=== PATIENT | female | born 1965 | race Caucasian/White ===

== ENCOUNTER → 2019-09-11 14:52 | Outpatient (CLI) | payer OTHER, SELFPAY ==
--- NOTE | ~2019-09-11 | MM_ITS ---
EXAMINATION: MM screening sebastien BI w wang HISTORY: Screening mammogram TECHNIQUE: Craniocaudal and mediolateral oblique 3-D tomosynthesis images were obtained and synthetic 2-D images were generated. CAD analysis was submitted and interpreted. COMPARISON: No prior mammogram is available for comparison at this institution. BREAST PARENCHYMAL COMPOSITION: The breasts are almost entirely fatty. FINDINGS: RIGHT BREAST: There is no evidence of suspicious mass, calcification, or architectural distortion to suggest malignancy. LEFT BREAST: There is focal asymmetry in the middle third of the upper outer quadrant of the breast. IMPRESSION: 1. Focal asymmetry of the left breast. 2. Additional mammographic views and possible breast ultrasound are recommended. BI-RADS Category 0: Incomplete: Needs additional imaging evaluation. Reviewed, dictated and finalized at location A. IMPRESSION: 1. Focal asymmetry of the left breast. 2. Additional mammographic views and possible breast ultrasound are recommended . BI-RADS Category 0: Incomplete: Needs additional imaging evaluation.
== END ==
PROVIDERS: PCP Family Medicine; Visit Provider Family Medicine
DX: Z12.31 Encounter for screening mammogram for malignant neoplasm of breast (principal); R92.8 Other abnormal and inconclusive findings on diagnostic imaging of breast
CPT/HCPCS: 77063; 77067

== ENCOUNTER → 2019-09-25 08:50 | Outpatient (CLI) | payer OTHER, SELFPAY ==
--- NOTE | ~2019-09-25 | MMUS_ITS ---
EXAMINATION: MM diagnostic mammo unilat LT, US breast LT limited HISTORY: Low up left breast asymmetry TECHNIQUE: Additional 3-D tomosynthesis images of the left breast were performed and synthetic 2-D im ages were generated. CAD analysis was submitted and interpreted. High resolution left breast ultrasou nd was performed. COMPARISON: 09/11/2019 FINDINGS: MAMMOGRAPHIC FINDINGS: Breast composed of scattered areas of fibroglandular density. There are no suspicious masses, calcifi cations or architectural distortion in the left breast to suggest malignancy. ULTRASOUND: Left breast ultrasound: At 1:00, 4 cm from the nipple, there is an oval circumscribed hyperechoic mass located superficially measuring 1.3 x 0.5 x 0.6 cm. No significant internal vascularity. Findings compatible with benign li marly. At 2:00, 8 cm from the nipple, there is a 5 mm cyst. IMPRESSION: 1. No evidence for malignancy in the left breast. Benign findings. 2. Routine yearly screening mammogram and regular clinical breast examination are recommended. BI-RADS Category 2: Benign finding(s). Reviewed, dictated and finalized at location A. IMPRESSION: 1. No evidence for malignancy in the left breast. Benign findings. 2. Routine yearly screening mammogram and regular clinical breast examination a re recommended. BI-RADS Category 2: Benign finding(s).
== END ==
PROVIDERS: PCP Family Medicine; Visit Provider Nurse Practitioner Family
DX: R92.8 Other abnormal and inconclusive findings on diagnostic imaging of breast (principal)
CPT/HCPCS: 76642; 77065

== ENCOUNTER 2020-03-03 14:57 | Outpatient (CLI) | payer OTHER, SELFPAY ==
--- NOTE | ~2020-03-03 | DEXA_ITS ---
Bone Density Report Name: Lexi Fernandez Age: 54 Sex: Female Ethnicity: White Date of : 1965 Indication: postmenopausal; height loss; prior fracture; asthma or emphysema; Referring Provider: JADEN CAMARGO Study: Bone densitometry was performed. Exam Date: March 03, 2020 Accession number: [id number] Bone Density: Region BMD T-score Z-score Classification AP Spine (L1-L4) 1.077 0.3 1.4 Normal Femoral Neck (Left) 0.775 -0.7 0.4 Normal Total Hip (Left) 0.981 0.3 1.1 Normal Total Hip Bilateral Avg 0.992 0.4 1.2 Normal Femoral Neck (Right) 0.820 -0.3 0.9 Normal Total Hip (Right) 1.001 0.5 1.2 Normal World Health Organization criteria for BMD impression classify patients as: Normal (T-score at or above -1.0), Osteopenia (T-score between -1.0 and -2.5), or Osteoporosis (T-score at or below -2.5). 10-year Fracture Risk: FRAX not reported because: All T-scores for Spine Total, Hip Total, Femoral Neck at or above -1.0 Clinical Information Provided by Patient: Has had a low trauma fracture Has the following medical conditions: Asthma or Emphysema Patient maximum height was 63 Menopause Age: 53 No regular weight bearing exercise Drinks caffeinated beverages Onset of menses at age 10 Number of children 2 Impression: The patient has normal bone mass. The patient has risk factors, including: previous fracture. Discussion: BONE DENSITY IS ABOVE THE MINIMUM DESIRABLE LEVEL AT ALL SKELETAL SITES TESTED. This patient?s bone mineral density is above the minimum desirable level (T-score -1.0 or better) at all sites measured. The patient should follow a healthful lifestyle (good nutrition with adequate calcium and vitamin D, and appropriate weight-bearing exercise). Follow-Up: Consider repeating this study in 5 years or sooner if there is some new clinical indication. Reported by: RICHARDSON on 03/03/2020 3:22:00 PM. Reviewed, dictated and finalized at location ACristal GUEVARA
== END 2020-03-03 14:58 | disposition home or self-care (01) ==
PROVIDERS: PCP Family Medicine; Visit Provider Obstetrics & Gynecology
DX: Z78.0 Asymptomatic menopausal state (principal)
CPT/HCPCS: 77080

== ENCOUNTER → 2020-11-13 06:35 | Outpatient (CLI) | payer OTHER, SELFPAY ==
[2020-11-13 23:32] LABS: SARS-CoV-2 RNA PCR Negative
== END ==
PROVIDERS: PCP Family Medicine; Visit Provider Family Medicine
DX: Z01.812 Encounter for preprocedural laboratory examination (principal); Z20.822 Contact with and (suspected) exposure to COVID-19
CPT/HCPCS: C9803; U0003; U0005

== ENCOUNTER → 2021-07-15 15:55 | Outpatient (CLI) | payer OTHER, SELFPAY ==
--- NOTE | ~2021-07-15 | MM_ITS ---
EXAMINATION: MM screening sebastien BI w wang HISTORY: Screening TECHNIQUE: Craniocaudal and mediolateral oblique 3-D tomosynthesis images were obtained and synthetic 2-D images were generated. CAD analysis was submitted and interpreted. COMPARISON: 09/11/2019 BREAST PARENCHYMAL COMPOSITION: Breast composed of scattered areas of fibroglandular density FINDINGS: There is no evidence of suspicious mass, calcification, or architectural distortion to sugg est malignancy in either breast. There has been no suspicious interval change. IMPRESSION: 1. No mammographic evidence of malignancy. 2. Recommend routine screening mammography in one year. BI-RADS Category 1: Negative Reviewed, dictated and finalized at location B. N HOSPITALIST PHYSICIAN
== END ==
PROVIDERS: Visit Provider Obstetrics & Gynecology
DX: Z12.31 Encounter for screening mammogram for malignant neoplasm of breast (principal)
CPT/HCPCS: 77063; 77067

== ENCOUNTER 2021-08-19 12:13 | Outpatient (CLI) | payer OTHER, SELFPAY ==
--- NOTE | ~2021-08-19 | US_ITS ---
EXAMINATION: US pelvic complete w TV DATE: 08/19/2021 12:52 INDICATION: Postmenopausal bleeding TECHNIQUE: Multiple transabdominal and endovaginal sonographic images of the pelvis were obtained. COMPARISON: None. FINDINGS: The uterus measures 8.5 x 4.6 x 3.6 cm. The endometrial complex measures 2.1 cm. The ovarie s are not visualized however no adnexal abnormality is seen. There is no free fluid in the pelvis. IMPRESSION: 1. Endometrial thickening which may be due to hyperplasia, polyp, or malignancy. Endometrial sampling is recommended. Reviewed, dictated and finalized at location A. CTOR OF ROOMS IMPRESSION: 1. Endometrial thickening which may be due to hyperplasia, polyp, or malignancy . Endometrial sampling is recommended.
== END 2021-08-19 12:14 | disposition home or self-care (01) ==
LOC: ANHIMG 12:18
PROVIDERS: PCP Family Medicine; Visit Provider Obstetrics & Gynecology
DX: N95.0 Postmenopausal bleeding (principal); R93.89 Abnormal findings on diagnostic imaging of other specified body structures
CPT/HCPCS: 76830; 76856

== ENCOUNTER → 2021-09-10 00:21 | Outpatient (CLI) | payer OTHER, SELFPAY ==
[2021-09-10 12:17] LABS: SARS-CoV-2 RNA PCR Negative
== END ==
PROVIDERS: PCP Family Medicine; Visit Provider Obstetrics & Gynecology
DX: Z01.812 Encounter for preprocedural laboratory examination (principal); Z20.822 Contact with and (suspected) exposure to COVID-19
CPT/HCPCS: C9803; U0003; U0005

== ENCOUNTER 2021-09-14 00:24 | Day surgery (SDC) | payer OTHER, SELFPAY ==
[2021-09-06 14:40] VITALS: BMI 36.3
--- NOTE | 2021-09-06 14:50 | PC.NURSE ---
Report to the Outpatient Waiting Room, entrance under the green pavilion located off [facility], at time 0830 on date 09/14/21. OR Time: 1030. - You and your visitor will be asked a series of questions to screen for COVID 19 for your protection. - A mask is required within the hospital. One visitor will be allowed to accompany the patient into the hospital. Patients visitor will be instructed to remain with patient at all times or leave the building. We will allow the visitor to come back to the postoperative area when patient is ready. Preoperative COVID Testing Requirements: No COVID Test needed if: (proof is required; if not received patient will have Rapid Test prior to entry) - Patient has received COVID Vaccine at least 14 days prior to procedure date or - Patient has positive COVID test result within last 90 days of surgery date. COVID Test needed if above criteria is not met Patients may have clear liquids (water, carbonated beverages, clear teas, apple juice) until 3 hours prior to surgery with a maximum of 20 ounces. - No food from midnight until time of surgery Take the following medications with a SIP of water the morning of surgery: LEVOTHYROXINE Medications to discontinue per physician: N/A Date to take last dose: N/A Please no make-up, nail belizean, hairspray, perfume, deodorant, or body powder the day of surgery. No jewelry (including any body piercings) or valuables the day of surgery, leave them at home. Please take a shower or bath the night before, or the morning of, surgery with an antibacterial soap. Wear comfortable, loose fitting clothing. - Jewelry must be removed prior to entering the operating room. Rings and piercings that are not removed may be cut off. - The hospital will not accept responsibility for valuables. - Please leave all valuables, including medications, at home the day of surgery. If you are going home after surgery, a licensed mail truck driver must drive you home. - NO public transportation without another adult. - We recommend that an adult stay with you for 24 hours following discharge. - We also recommend that you do not drive, make important decision, drink alcoholic beverages, or take any drugs that were not prescribed by your health care provider for at least 24 hours after your discharge time. Follow any additional instructions given to you from your surgeon. Telephone instructions given to JODI HORN and asked if any additional questions and then verbalized understanding. Patient advised to call surgeon office or pre surgery nurse liaison [phone] if any additional questions.
--- NOTE | 2021-09-13 13:25 | P.PNAN_ITS ---
Anes - Initial Pre Proc Eval Procedure: Operation Date: 09/14/21 08:30 Proposed Procedures p Hysteroscopy Dilation and Curettage with Possible Myosure - Sigifredo Lopez MD Date/Time: 09/13/21 13:25 Surgeon: Sigifredo Lopez MD Pre Op Diagnosis: post menopausal bleeding Patient Data Age: 55 Gender: F Height: 1.6 m Weight: 93 kg Allergies Allergy/AdvReac Type Severity Reaction Status Date / Time chlorhexidine Allergy Mild Hives Verified 09/14/21 06:56 [From Hibiclens] codeine Allergy Mild Vomiting Verified 09/06/21 14:40 Home Medications Medication Instructions Recorded Confirmed Type levothyroxine 125 mcg tablet See Rx Instructions .ROUTE 08/01/21 09/14/21 Rx .COMPLEX #90 tablet Patient hx anesthesia problems: none Family hx anesthesia problems: none Results Review: All pre-operative results and documents have been reviewed as part of the pre-operative evaluation. [facility] Past Medical History Medical History (Updated 09/13/21 @ 13:26 by Yoni Duron DO) Asthma BMI 37.0-37.9, adult BMI 38.0-38.9,adult H/O vaginal delivery Hypothyroidism Obesity Onychomycosis Surgical History Surgical History H/O section S/P knee surgery Family History Family History Father Hypertension Grandparent Cerebrovascular accident Other Diabetes mellitus Social History Social History Smoking packs per day: 1 Smoking cigarettes per day: 20.0 Years smoked: 10 Smoking pack-years: 10.00 Smoking status: Former smoker Tobacco type: cigarettes Smoking end date: 07/02/09 Alcohol intake: current Alcohol use details: 2/MONTH Substance use: never Substance use type: does not use Living arrangements: with family Spiritual care concerns: No Anes - Eval Final PreProcedure Day of Procedure 09/13/21 13:25 Patient weight: obese Heart: regular rate and rhythm Lungs: clear to auscultation and normal air movement Airway: Mallampati scale class II Neurological: alert and oriented Last oral intake: >/= 8 hours ASA classification: II Emergent: no Anesthetic plan: proceed Anesthesia type and monitoring: general GIVS and standard monitoring Results Review: All pre-operative results and documents have been reviewed as part of the pre-operative evaluation. Informed Consent: The patient's anesthetic plan and its attendant risks and benefits were discussed with the patient/family/POA. Questions were solicited and answers provided to the satisfaction of the patient/family/POA.
[2021-09-14] MEDS: ACETAMINOPHEN 500 MG TABLET 1000 MG PO (07:17)
[2021-09-14] MEDS: LACTATED RINGERS 1,000 ML 30 ML IV CONT (07:30)
[2021-09-14 07:46] VITALS: BP 142/95; PULSE 84; RESP 16; TEMP 36.1; O2SAT 100
--- NOTE | 2021-09-14 08:13 | PM.IMHP ---
H&P: HPI History of Present Illness Date/Time: 09/14/21 08:13 Patient with history of postmenopausal bleeding. Subsequent ultrasound showed a thickened endometrial stripe and endometrial biopsy did not show hyperplasia or carcinoma there were some findings of papillary metaplasia which I have seen sometimes if there is an endometrial polyp which is what I suspect is the etiology of her bleeding with the thickness of the lining on ultrasound. She was recommended for hysteroscopy, dilation and currettage and removal of lesion if present. Chief Complaint: postmenopausal bleeding Review of Systems Review of Systems: All systems reviewed & are unremarkable except as noted in HPI and below Cardiovascular: Cardiovascular: Reports no additional cardiovascular complaints, Denies chest pain and Denies dyspnea Respiratory: Respiratory: Reports no additional respiratory complaints and Denies dyspnea Gastrointestinal: Gastrointestinal: Reports abdominal pain, Denies change in bowel habits, Denies diarrhea, Denies nausea and Denies vomiting Genitourinary: Genitourinary: Reports pelvic pain Musculoskeletal: Musculoskeletal: Reports back pain Integumentary/Breasts: Skin/Breast: Reports system reviewed and no additional complaints, except as docu Neurologic: Reports system reviewed and no additional complaints, except as documented [facility] Past Medical History Medical History Asthma BMI 37.0-37.9, adult BMI 38.0-38.9,adult H/O vaginal delivery Hypothyroidism Obesity Onychomycosis Surgical History Surgical History H/O section S/P knee surgery Family History Family History Father Hypertension Grandparent Cerebrovascular accident Other Diabetes mellitus Social History Social History Smoking packs per day: 1 Smoking cigarettes per day: 20.0 Years smoked: 10 Smoking pack-years: 10.00 Smoking status: Former smoker Tobacco type: cigarettes Smoking end date: 07/02/09 Alcohol intake: current Alcohol use details: 2/MONTH Substance use: never Substance use type: does not use Living arrangements: with family Spiritual care concerns: No Meds Home Medications and Allergies Home Medications Medication Instructions Recorded Confirmed Type levothyroxine 125 mcg tablet See Rx Instructions .ROUTE 08/01/21 09/14/21 Rx .COMPLEX #90 tablet Allergies Allergy/AdvReac Type Severity Reaction Status Date / Time chlorhexidine Allergy Mild Hives Verified 09/14/21 06:56 [From Hibiclens] codeine Allergy Mild Vomiting Verified 09/06/21 14:40 Vital Signs Vital Signs - 24 hr 09/14/21 07:46 Temperature 97.0 F L Pulse Rate 84 Respiratory Rate 16 Blood Pressure 142/95 H Pulse Oximetry 100 Exam Const: Orientation/consciousness: oriented to person and oriented to place HENMT: Head: normal to inspection Eyes: General: appearance normal, both eyes and all related structures Resp: Effort & Inspection: normal respiratory effort Auscultation: clear to auscultation bilaterally Cardio: Rate: regular rate Rhythm: regular rhythm GI: Inspection: normal to inspection GI Palp: No Rebound tenderness present : External Female Exam: normal external appearance Speculum Exam - Cervix: normal appearance of the cervix Bimanual exam- vagina & uterus: normal bimanual exam and uterine shape normal Bimanual Exam- Adnexa, other: no masses Neuro: General: oriented to person and oriented to place Cognition (Neuro): normal cognition Extrem: General: normal to inspection Psych: Appearance: grossly normal and well kempt Assessment and Plan Assessment and plan (1) Post-menopausal bleeding: Code(s): N95.0 - Postmenopausal bleeding Status: Acute
--- NOTE | 2021-09-14 08:20 | WPDHPUPDATE1 ---
History and Physical Update Update Date/Time: 09/14/21 08:20 History and Physical has been reviewed, including an updated exam of the patient. There are NO changes in the patient's condition. Risks, benefits, and alternatives have been discussed and questions answered. Patient agrees to proceed with procedure.
[2021-09-14] MEDS: ceFAZolin 2 GM/D5W 50 ML 2 GM/50 ML BAG IVPB (08:35)
--- NOTE | 2021-09-14 09:09 | W.PM.PROC2 ---
Procedure Note - Detailed Date of Procedure 09/14/21 Pre-op Diagnosis post menopausal bleeding Post-op Diagnosis Same (1. Postmenopausal bleeding 2. Endometrial lesion) Procedure Performed Hysteroscopic removal of endometrial lesion, dilation and currettage. Surgeon Sigifredo Lopez MD Anesthesia MAC and Local Indications Patient with postmenopausal bleeding and thickened endometrial stripe. Endometrial biopsy without hyperplasia or carcinoma. Findings Endometrial polyp seen from anterior lower uterine cavity, removed, the rest of cavity atrophic appearing. Description of Procedure After informed consent was obtained. She was taken to OR and adequate IV sedation administered. An examine under anesthesia was performed. No abnormalities palpated. She was placed in low lithotomy position and prepped and draped in sterile fashion. Speculum inserted. Single tooth tenaculum placed on anterior lip of cervix. 10cc of 1% lidocaine plain was injected at cervicovaginal interface at 2,5,8, 10 o clock position. Uterus sound to 8 cm. The cervix was dilated to 8 bradley dilator. The hysteroscope was inserted. A medium size polyp was seen coming from the anterior uterus. The myosure was then inserted and the polyp was excised completely. No other lesions visualized. The rest of the uterus appeared atrophic. A currettage was performed, small amount of tissue obtained. Patient tolerated procedure well. Sponge count corrects. Distending media normal saline 1700ccIn/1600cc out. Patient taken to outpatient recovery in stable condition. Estimated Blood Loss 5 Drains No Packing No Pathology Yes (myosure shavings of lesion and currettage) Complications No immediate complications Condition Stable Disposition PACU
[2021-09-14 09:14] VITALS: BP 128/90; PULSE 108; RESP 13; O2SAT 96
[2021-09-14 09:30] VITALS: BP 147/81; PULSE 82; RESP 16; O2SAT 98
[2021-09-14 10:00] VITALS: BP 134/83; PULSE 75; RESP 16
[2021-09-14] MEDS: oxyCODONE HCL (*CRX) 5 MG TAB IR PO (10:06)
[2021-09-14 10:30] VITALS: BP 138/89; PULSE 75; RESP 16
== END 2021-09-14 10:37 | disposition home or self-care (01) ==
PROVIDERS: PCP Family Medicine; Visit Provider Obstetrics & Gynecology
PROC: 0U5B8ZZ Destruction of Endometrium, Via Natural or Artificial Opening Endoscopic (ICD-10-PCS; CPT 58563; principal; 2021-09-14 08:30)
DX: N95.0 Postmenopausal bleeding (principal); N84.0 Polyp of corpus uteri; E03.9 Hypothyroidism, unspecified; E66.9 Obesity, unspecified; Z68.37 Body mass index [BMI] 37.0-37.9, adult; Z87.891 Personal history of nicotine dependence
CPT/HCPCS: 58558; 88305; A9270; C9803; J0690; J1100; J2250; J2405; J2704; J3010; J7030; J7120; U0003; U0005

== ENCOUNTER → 2023-05-22 10:03 | Outpatient (CLI) | payer OTHER, SELFPAY ==
--- NOTE | ~2023-05-22 | US_ITS ---
EXAMINATION: US thyroid DATE: 05/22/2023 10:30 INDICATION: Enlarged thyroid on exam TECHNIQUE: Multiple ultrasound images of the thyroid were obtained. COMPARISON: 02/09/2004. FINDINGS: The right thyroid lobe measures 5.2 x 1.6 x 1.7 cm. The left thyroid lobe measures 5.1 x 1.5 x 1.9 c m. The isthmus measures 0.7 cm There is heterogeneous echotexture and echogenicity throughout the thy roid gland. No discrete nodules identified. Ill-defined hyperechoic area in the mid left thyroid glan d may represent the hyperechoic nodule described in the prior study, overall less discrete and smalle r than in the prior examination. Normal vascular flow is present. IMPRESSION: Heterogeneous echogenicity of the thyroid gland which can be seen with Anastasia thyroiditis and Grav es' disease. Reviewed, dictated and finalized at location K. TENANCE PLANNING CLERK IMPRESSION: Heterogeneous echogenicity of the thyroid gland which can be seen with Hashimot o thyroiditis and Graves' disease.
== END ==
PROVIDERS: PCP Obstetrics & Gynecology; Visit Provider Obstetrics & Gynecology
DX: E05.90 Thyrotoxicosis, unspecified without thyrotoxic crisis or storm (principal)
CPT/HCPCS: 76536

== ENCOUNTER 2024-01-15 14:37 | Outpatient (CLI) | payer OTHER, SELFPAY ==
--- NOTE | ~2024-01-15 | MM_ITS ---
EXAMINATION: MM screening sebastien BI w wang HISTORY: Screening TECHNIQUE: Craniocaudal and mediolateral oblique 3-D tomosynthesis images were obtained and synthetic 2-D images were generated. CAD analysis was submitted and interpreted. COMPARISON: Comparison to multiple prior studies sequentially, with oldest reviewed study dated 09/10. BREAST PARENCHYMAL COMPOSITION: Not dense: There are scattered areas of fibroglandular density. FINDINGS: There is no evidence of suspicious mass, calcification, or architectural distortion to sugg est malignancy in either breast. There has been no suspicious interval change. IMPRESSION: 1. No mammographic evidence of malignancy. 2. Recommend routine screening mammography in one year. BI-RADS Category 1: Negative Reviewed, dictated and finalized at location B.
== END 2024-01-15 14:38 ==
PROVIDERS: PCP Family Medicine; Visit Provider Obstetrics & Gynecology
DX: Z12.31 Encounter for screening mammogram for malignant neoplasm of breast (principal)
CPT/HCPCS: 77063; 77067